=== PATIENT | male | born 1955 | race Caucasian/White ===

== ENCOUNTER → 2024-10-03 | Outpatient (CLI) | payer OTHER, SELFPAY ==
[2024-10-03 11:00] LABS: Collection Type, Urine Clean Catch; Squamous Epithelial Cell,Urine 0 /hpf (0-5)
[2024-10-03 11:34] LABS: Basophils # (Auto) 0.1 Thou/mm3 (0.0-0.2); Basophils % (Auto) 1 % (0-2.5); Eosinophils # (Auto) 0.1 Thou/mm3 (0.0-0.5); Eosinophils % (Auto) 3 % (0-10); Hematocrit 44.8 % (41.0-53.0); Hemoglobin 15.8 g/dL (13.5-16.0); Immature Granulocytes % (Auto) 1 % (0-0); Immature Granulocytes Auto 0.03 Thou/mm3 (0.00-0.00); Lymphocytes # (Auto) 1.1 Thou/mm3 (1.0-4.8); Lymphocytes % (Auto) 19 % (10-50); Mean Corpuscular HGB Conc 35.3 g/dl (31.0-37.0); Mean Corpuscular Hemoglobin 29.7 pg (25.0-35.0); Mean Corpuscular Volume 84 fL (80-100); Monocytes # (Auto) 0.6 Thou/mm3 (0.0-0.8); Monocytes % (Auto) 10 % (0-12); Neutrophils # (Auto) 3.8 Thou/mm3 (1.8-7.7); Neutrophils % (Auto) 67 % (37-80); Nucleated Red Blood Cell % 0 /100 WBC (0); Platelet Count 202 Thou/mm3 (140-440); RDW Standard Deviation 41.8 fL (35.1-43.9); Red Blood Count 5.32 Miln/mm3 (4.50-5.90); White Blood Count 5.7 Thou/mm3 (3.8-10.6)
[2024-10-03 11:39] LABS: Bilirubin,Urine Negative (Negative); Blood,Urine Negative (Negative); Clarity,Urine Clear (Clear/Hazy); Color,Urine Lt-Yellow (Lt Yel-Yel); Culture Indicated,Urine Not Indicated; Glucose, Urine Negative (Negative); Ketones,Urine Negative (Negative); Leukocyte Esterase,Urine Negative (Negative); Nitrite,Urine Negative (Negative); PH,Urine 7.5 (5.0-7.0); Protein,Urine Negative (Neg - Trace); RBC,Urine 1 /hpf (0-3); Specific Gravity,Urine 1.011 (1.001-1.035); Urobilinogen,Urine Negative mg/dL (0.0-1.0); WBC,Urine 1 /hpf (0-5)
[2024-10-03 11:52] LABS: Prostate Specific Antigen 0.71 ng/mL (0-4.00)
[2024-10-03 11:58] LABS: Carcinoembryonic Antigen 2.1 ng/mL (0.0-5.0); Vitamin B12 348 pg/mL (211-911); Vitamin D 25 Hydroxy Total 24.5 ng/mL (7.3-40.2)
[2024-10-03 12:01] LABS: Alanine Aminotransferase 23 U/L (10-49); Albumin, Serum 4.3 gm/dL (3.4-4.8); Albumin/Globulin Ratio 2.2 (1.2-2.2); Alkaline Phosphatase 58 U/L (46-116); Anion Gap 5 (7-16); Aspartate Amino Transferase 21 U/L (0-34); BUN/Creatinine Ratio 8 Ratio (12-20); Bilirubin,Total 1.2 mg/dL (0.3-1.2); Blood Urea Nitrogen 7 mg/dL (9-23); Calcium 9.1 mg/dL (8.3-10.6); Calcium (Corrected) 9.1 mg/dL (8.5-10.1); Carbon Dioxide 28.6 mMol/L (20.0-31.0); Chloride 97 mMol/L (98-107); Cholesterol 177 mg/dL (132-200); Creatinine (Component) 0.9 mg/dL (0.6-1.3); Glucose 99 mg/dL (74-106); HDL Cholesterol 88 mg/dL (40-60); LDL Cholesterol,Calculated 78 mg/dL (0-130); Osmolality,Calculated 260 (275-295); Potassium 4.3 mMol/L (3.4-5.1); Sodium 131 mMol/L (136-145); Thyroid Stimulating Hormone 2.68 uIU/mL (0.55-4.78); Total Protein 6.3 gm/dL (5.7-8.2); Triglycerides 56 mg/dL (30-150); eGFR > 60 See Note
[2024-10-09 07:08] LABS: CA 19-9 Antigen* 4 U/mL (<34)
== END | disposition home or self-care (01) ==
LOC: COPL 10:32
PROVIDERS: PCP Physician Assistant; Referring Provider Physician Assistant; Visit Provider Physician Assistant
DX: Z00.00 Encounter for general adult medical examination without abnormal findings (principal); I10 Essential (primary) hypertension; E55.9 Vitamin D deficiency, unspecified; Z85.038 Personal history of other malignant neoplasm of large intestine
CPT/HCPCS: 36415; 80053; 80061; 81001; 82306; 82378; 82607; 84153; 84443; 85025; 86301

== ENCOUNTER 2024-12-01 10:25 | Day surgery (SDC) | payer OTHER, SELFPAY ==
[2024-11-30 14:47] VITALS: BMI 39.9
[2024-12-01] VITALS (10 sets, daily range): BP systolic 97–149; BP diastolic 70–92; PULSE 79–92; RESP 14–35; TEMP 36.4–36.9; O2SAT 93–97; BMI 39.2
[2024-12-01] MEDS: DiphenhydrAMINE INJ 50 MG/ML VIAL 25 MG IV (12:34)
[2024-12-01] MEDS: SODIUM CHLORIDE 0.9% 500 ML 500 ML 20 ML IV (12:34)
[2024-12-01] MEDS: MIDAZOLAM INJ 1 MG/ML VIAL 2 ML (ASD USE ONLY) 2 MG IV (12:37)
[2024-12-01] MEDS: fentaNYL CIT INJ 50 mCg/ML AMP 2ML (ASD USE ONLY) IV (12:37)
== END 2024-12-01 13:30 | disposition home or self-care (01) ==
PROVIDERS: PCP Family Medicine; Referring Provider Specialist; Visit Provider Specialist
PROC: 0DBE8ZX Excision of Large Intestine, Via Natural or Artificial Opening Endoscopic, Diagnostic (ICD-10-PCS; CPT 45380; principal; 2024-12-01 09:45)
DX: Z12.11 Encounter for screening for malignant neoplasm of colon (principal); K64.9 Unspecified hemorrhoids
CPT/HCPCS: G0121; J1200; J2250; J3010; J7040

== ENCOUNTER → 2025-05-29 | Outpatient (CLI) | payer OTHER, SELFPAY ==
[2025-05-29 14:18] LABS: Alanine Aminotransferase 22 U/L (10-49); Albumin, Serum 4.6 gm/dL (3.4-4.8); Albumin/Globulin Ratio 2.6 (1.2-2.2); Alkaline Phosphatase 49 U/L (46-116); Anion Gap 11 (7-16); Aspartate Amino Transferase 23 U/L (0-34); BUN/Creatinine Ratio 8 Ratio (12-20); Bilirubin,Total 1.1 mg/dL (0.3-1.2); Blood Urea Nitrogen 6 mg/dL (9-23); Calcium 9.2 mg/dL (8.3-10.6); Calcium (Corrected) 9.2 mg/dL (8.5-10.1); Carbon Dioxide 24.9 mMol/L (20.0-31.0); Chloride 93 mMol/L (98-107); Creatinine (Component) 0.8 mg/dL (0.6-1.3); Globulin 1.8 gm/dL (2.3-3.5); Glucose 84 mg/dL (74-106); Osmolality,Calculated 255 (275-295); Potassium 3.9 mMol/L (3.4-5.1); Sodium 129 mMol/L (136-145); Total Protein 6.4 gm/dL (5.7-8.2); eGFR > 60 See Note
[2025-06-06 07:37] LABS: Testosterone, Free,Dialysis 55.6 pg/mL (35.0-155.0); Testosterone, Total, Dialysis 329 ng/dL (250-1100)
== END | disposition home or self-care (01) ==
PROVIDERS: PCP Family Medicine; Referring Provider Physician Assistant; Visit Provider Physician Assistant
DX: I10 Essential (primary) hypertension (principal); R53.83 Other fatigue
CPT/HCPCS: 36415; 80053; 84402; 84403